=== PATIENT | male | born 1960 | race Caucasian/White ===

== ENCOUNTER → 2017-02-18 | Outpatient (CLI) | payer OTHER ==
--- NOTE | ~2017-02-18 | NM22 ---
[facility] A Service of [place] & [facility] RADIOLOGY TEXT RESULTS PATIENT: MARIELENA EVERETT JR [facility] 56 UNIT #: [id number] AGE: [address]: Francisco Childress MD SEX: M ORDER DR: [id number] [facility] [address] [place], [place] [address] [id number] O MR#: [id number] Acc #: [id number] NAME: MARIELENA EVERETT : 1960 SEX: M STUDY DATE/TIME: 02/18/2017 12:44 [facility] ROOM: STUDY DESCRIPTION: NM Hepatobiliary W GB Pharm Attending Physician: Francisco Childress M.D. Referring Physician: Francisco Childress M.D. Ordering Physician: Francisco Childress M.D. Primary Care Physician: [facility] MEDICAL IMAGING REPORT This report is preliminary unless electronic signature is present EXAM HIDA scan with Kinevac CCK, 02/18/2017. HISTORY Right upper quadrant abdominal pain and pressure and epigastric pain, loss of appetite, weight loss. Abdominal gas and belching early satiety, nausea symptoms for 6 months. FINDINGS The patient received an intravenous injection of 5.3 mCi of technetium 99m tagged Choletec for hepatobiliary imaging. One hour following injection of the radiopharmaceutical, the patient received intravenous injection of 3.2 mcg of Kinevac. There was homogeneous distribution of the radiotracer throughout the liver. Gallbladder activity was seen by 60 minutes postinjection of the radiopharmaceutical. Following Kinevac injection, the gallbladder ejection fraction was 16.2% (normal is greater than 30%). IMPRESSION Low gallbladder ejection fraction of 16.2%. Dictated by... Kvng Bacon M.D. THIS IS AN ELECTRONICALLY VERIFIED REPORT Kvng Bacon M.D. at 02/19/2017 6:31 AM CHRISTIANA/marc TD: 02/18/2017 21:42 JOB #: [id number] MEDICAL IMAGING REPORT Page 1 of 1 COPY
--- NOTE | ~2017-02-18 | CT4 ---
[facility] A Service of [facility] RADIOLOGY TEXT RESULTS PATIENT: MARIELENA EVERETT JR [facility] 56 UNIT #: [id number] AGE: [address]: Francisco Childress MD SEX: M ORDER DR: [id number] [facility] [address] [place], [place] [address] [id number] O MR#: [id number] Acc #: [id number] NAME: MARIELENA EVERETT : 1960 SEX: M STUDY DATE/TIME: 02/18/2017 16:25 [facility] RO[facility]: STUDY DESCRIPTION: CT Abd and Pelv Wo Cont Attending Physician: Francisco Childress M.D. Referring Physician: Francisco Childress M.D. Ordering Physician: Francisco Childress M.D. Primary Care Physician: [facility]. MEDICAL IMAGING REPORT This report is preliminary unless electronic signature is present EXAM CT of the abdomen and pelvis without contrast INDICATION Epigastric pain, vomiting and pressure in rectal area for 6-8 months. It has gotten worse over the past month. Patient also reports 40-pound weight gain. TECHNIQUE Axial CT images were obtained from the dome of the diaphragm to the symphysis pubis following administration of oral contrast material. This CT exam was performed with one or more of the following radiation dose reduction techniques: Automatic exposure control, adjustment of mA and/or kV according to patient size, and iterative reconstruction. FINDINGS Images through the lung bases demonstrates some swelling in the right middle lobe. Stomach and proximal small bowel are within normal limits. Patient has hepatomegaly and diffuse hepatic steatosis. Liver measures up to about 16.1 cm in length. The spleen is also enlarged at 17.4 cm. Pancreas is atrophic. Patient's gallbladder appears mildly distended measuring up 10.7 cm in AP. The patient did have filling of the gallbladder on his HIDA scan, although the gallbladder ejection fraction was reduced at 16.2%, which would suggest perhaps some biliary dyskinesia. Nonobstructing stones are identified within both kidneys. There is no adenopathy seen within the abdomen. The appendix is visualized and is within normal limits. There is a small fat-containing umbilical hernia. Prostate gland and urinary bladder are normal. I do not see any free fluid or adenopathy within the pelvis. There is certainly no evidence of mechanical bowel obstruction. [facility]. [facility] A Service of [facility] & [facility] RADIOLOGY TEXT RESULTS PATIENT: MARIELENA EVERETT JR LOCATION: [facility] : 56 UNIT #: [id number] AGE: [address]: Francisco Childress MD SEX: M ORDER DR: Review of bony windows demonstrates old right ninth and tenth rib fractures as well as an old right seventh rib fracture. No aggressive osseous abnormalities are seen. 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 IMPRESSION 1. Diffuse hepatic steatosis as well as hepatomegaly. 2. Splenomegaly. 3. Patient's gallbladder does appears somewhat distended measuring up to about 10.7 cm in AP dimensions. No obvious stones are seen and there is no gallbladder wall thickening or pericholecystic fluid. Gallbladder ejection fraction did appear to be somewhat diminished on a recent HIDA scan and potentially this could reflect some biliary dyskinesia. 4. Nonobstructing stones are identified within both kidneys. Please see the body of the report for any other additional incidental findings. STAT * RESULT Dictated by... Maddy Celaya M.D. THIS IS AN ELECTRONICALLY VERIFIED REPORT Maddy Celaya M.D. at 02/23/2017 8:00 AM AFF/aa TD: 02/22/2017 13:04 JOB #: [id number] MEDICAL IMAGING REPORT Page 1 of 1 COPY
[2017-02-18 11:49] LABS: HEMATOCRIT 36.6 % (38.0-50.0); HEMOGLOBIN 11.8 gm/dL (13.0-16.0); MEAN CELL VOLUME 76.9 FL (83-96); MEAN CORPUSCULAR HEMOGLOBIN 24.8 PG (28-34); MEAN CORPUSCULAR HGB CONC 32.2 g/dL (30-36); RED BLOOD COUNT 4.76 X10e (3.90-5.60); WHITE BLOOD COUNT 4.3 X10e3 (4.0-10.5)
[2017-02-18 12:15] LABS: ALBUMIN SERUM 3.5 g/dL (3.5-5.0); BILIRUBIN,TOTAL 0.7 mg/dL (0.2-2.0); CALCIUM SERUM 8.7 mg/dL (8.4-10.2); GLOM FILT RATE Estimated 82.6 mL/min (>60); POTASSIUM 3.7 mmol/L (3.5-5.1); PROTEIN TOTAL SERUM 7.3 g/dL (6.0-8.3)
== END | disposition home or self-care (01) ==
LOC: CCAT 02-17 13:00
PROVIDERS: Internal Medicine
DX: R10.84 Generalized abdominal pain (principal); K76.0 Fatty (change of) liver, not elsewhere classified; R16.2 Hepatomegaly with splenomegaly, not elsewhere classified; N20.0 Calculus of kidney
CPT/HCPCS: 36415; 74176; 78227; 80053; 82150; 83690; 85027; A9537; J2805